=== PATIENT | male | born 1955 | race Caucasian/White ===

== ENCOUNTER → 2016-05-14 | Outpatient (CLI) | payer MEDICARE, OTHER ==
[~2016-05-14] MED LIST: CALCIUM-MAG-ZIN1 TAB PO; FISH OIL 1,0001 EAC2 PO; GLUCOSAMINE & C1 CAP PO; LISINOPRIL20 MG PO; LOVASTATIN20 M2 PO; MULTI VITAMIN1 EACH PO; STOOL SOFTENER100 M1 PO; [UNRECOGNIZED DRUG - OTHER]
--- NOTE | ~2016-05-14 | EKG ---
PATIENT: NORMAN PARKER UNIT #: [id number] Ventricular Rate: 76 BPM Atrial Rate: 76 BPM P-R Interval: 162 ms QRS Duration: 82 ms Q-T Interval: 378 ms QTC Calculation(Bezet): 425 ms P [place]: 46 degrees Calculated R [place]: 38 degrees Calculated T [place]: 48 degrees Diagnosis Line: Normal sinus rhythm Diagnosis Line: Normal ECG Diagnosis Line: No previous ECGs available Diagnosis Line: Confirmed by BERTA CASTELLANO MD ([id number]) on Diagnosis Line: 05/14/2016 12:10:21 PM INTERPRETING MD: ОЛЕГ
[2016-05-14 10:13] LABS: BLOOD UREA NITROGEN 17 mg/dL (9-23); BUN/CREATININE RATIO 28.33; CALCIUM SERUM 9.2 mg/dL (8.4-10.2); CARBON DIOXIDE 27 mmol/L (22-31); CHLORIDE 103 mmol/L (100-111); CREATININE SERUM 0.6 mg/dL (0.6-1.4); GLOM FILT RATE Estimated ABOVE60 mL/min (>60); GLUCOSE FASTING 102 mg/dL (70-110); POTASSIUM 4.1 mmol/L (3.5-5.1); SODIUM 135 mmol/L (135-145)
== END | disposition home or self-care (01) ==
LOC: CAMB 07:30
PROVIDERS: Surgery
DX: Z01.818 Encounter for other preprocedural examination (principal); K64.4 Residual hemorrhoidal skin tags
CPT/HCPCS: 36415; 80048; 93005

== ENCOUNTER → 2016-05-21 | Day surgery (SDC) | payer MEDICARE, OTHER ==
--- NOTE | ~2016-05-21 | OR ---
Unit #: [id number] #: [id number] Patient: NORMAN PARKER [id number] [address] [place], [place] [address] [id number] MR#: [id number] NAME: NORMAN PARKER ROOM: Date of Procedure: 05/21/2016 Admission Date: 05/21/2016 Surgeon: Raj Sky Jr., M.D. : 1955 Attending Physician: Raj Sky Jr., M.D. Primary Care Physician: Cameron Bowers M.D. OPERATIVE REPORT INDICATION FOR PROCEDURE The patient is a 61-year-old white male, who has been having intermittent bleeding from his hemorrhoids. He has both internal and external hemorrhoids and has failed to respond to major medical management. He is brought in this time for surgical management of his hemorrhoids. He is here for hemorrhoidal stapling with external hemorrhoidectomy. He understands the procedure including the risks, including that of recurrence of his hemorrhoids, bleeding, infection, poor healing, and chronic pain and anal stenosis and consents. PREOPERATIVE DIAGNOSIS Bleeding internal and external hemorrhoids. POSTOPERATIVE DIAGNOSIS Extremely large dilated internal hemorrhoids with one external hemorrhoid of significance. ANESTHESIA General with endotracheal intubation and 0.5% Marcaine with epinephrine locally as a perianal block. PROCEDURES PERFORMED Hemorrhoidal stapling with mucosectomy and external hemorrhoidectomy x1. DESCRIPTION OF PROCEDURE The patient was positioned in supine position. After being anesthetized and intubated, he was placed in prone position, padded well and prepped and draped in routine fashion for hemorrhoidal stapling. Perianal block was performed with 0.5% Marcaine with epinephrine. An anal dilatation performed up to 4 fingerbreadths. The retracting device was placed up in the anal canal and sutured in place with 2-0 silk sutures and the internal retracting device was then placed and 0 Prolene pursestring was then placed approximately 4 cm above the dentate line. After this was placed, an additional stitch was placed at the 6 o'clock position. Stapler placed. The pursestring tied around the stem of the stapler was closed, fired, and removed. There was some oozing from the staple line and 3 separate spots. This was controlled with [id number] 3-0 Vicryl sutures. After total hemostasis was achieved, the retracting device was removed. There was one large internal hemorrhoid in prone position at 5 o'clock. The base of this was clamped with a Vashon clamp and the hemorrhoid excised and a 2-0 chromic suture was run from internal to external with a locking type stitch for hemostasis. There were no other Unit #: [id number] #: [id number] Patient: NORMAN PARKER significant external hemorrhoids. There was no evidence of any narrowing of the anal canal and no evidence of any bleeding internally. The anal canal was packed with Gelfoam soaked with viscous Xylocaine. Sterile dressings were applied externally. Estimated blood loss less than 30 mL. The patient received less than 1000 mL crystalloid solution during the procedure. Sponges and instruments counts were correct x3. No drains used. No complications. The patient was taken to the recovery room with stable vital signs in satisfactory condition. Dictated by... Raj Sky Jr., MSamantha. SHARDA/brenda TD: 05/21/2016 23:12 JOB #: [id number] OPERATIVE REPORT X Raj Sky MD X PROCEDURE OPERATIVE NOTE
== END | disposition home or self-care (01) ==
LOC: CSUR 05:40
DX: K64.8 Other hemorrhoids (principal); K64.4 Residual hemorrhoidal skin tags; I10 Essential (primary) hypertension; E78.00 Pure hypercholesterolemia, unspecified; E78.5 Hyperlipidemia, unspecified
CPT/HCPCS: 88304; J2175; J3010